=== PATIENT | male | born 1985 | race Hispanic/Latino ===

== ENCOUNTER 2018-06-19 08:25 | Emergency (ER) | payer OTHER ==
[2018-06-19 08:29] VITALS: BMI 25.1
[2018-06-19 08:35] VITALS: TEMP 99
--- NOTE | 2018-06-19 08:56 | C.PDOC ---
History Of Present Illness 32 year old male, with no significant past medical history, presents to ED for evaluation of right knee pain since this morning. Pt states he twisted his right knee while walking down the stairs this morning. Notes he is not able to bear weight. Denies weakness, numbness, or any other associated symptoms. Time Seen by Provider: 06/19/18 08:35 Chief Complaint (Nursing): Lower Extremity Problem/Injury History Per: Patient History/Exam Limitations: no limitations Onset/Duration Of Symptoms: Days Current Symptoms Are (Timing): Still Present Recent travel outside of the [place]: No Additional History Per: Patient - Knee Description Of Injury: Twisted Currently Unable To: Bear Weight Past Medical History Reviewed: Historical Data, Nursing Documentation, Vital Signs Vital Signs: Last Vital Signs Temp 99 F 06/19/18 08:29 Pulse 94 H 06/19/18 08:29 Resp 18 06/19/18 08:29 BP 126/77 06/19/18 08:29 Pulse Ox 96 06/19/18 08:29 Family History: States: Unknown Family Hx - Social History Hx Alcohol Use: Yes Hx Substance Use: No - Immunization History Hx Tetanus Toxoid Vaccination: No Hx Influenza Vaccination: No Hx Pneumococcal Vaccination: No Review Of Systems Except As Marked, All Systems Reviewed And Found Negative. Constitutional: Negative for: Fever, Chills Musculoskeletal: Positive for: Leg Pain (right knee) Skin: Negative for: Bruising Neurological: Negative for: Weakness, Numbness Physical Exam - Physical Exam Appears: Non-toxic, No Acute Distress Skin: Normal Color, Warm, Dry Head: Atraumatic, Normacephalic Extremity: No Normal ROM (decreased ROM of right knee joint, not able to flex or extend), Tenderness (tenderness to medial aspect of right knee), No Pedal Edema, No Calf Tenderness, Capillary Refill (less than 2 seconds), No Deformity, No Swelling Extremity: Bilateral: Normal Color And Temperature, Painful To Bear Weight (right knee) Pulses: Left Dorsalis Pedis: Normal, Right Dorsalis Pedis: Normal Neurological/Psych: Oriented x3, Normal Speech ED Course And Treatment O2 Sat by Pulse Oximetry: 96 (RA) Pulse Ox Interpretation: Normal - Other Rad Right knee Xray X-Ray: Viewed By Me, Read By Radiologist Interpretation: Accession No. : [id number]. Patient Name / ID : BRICE DOZIER / [id number]. Exam Date : 06/19/2018 09:13:21 ( Approved ). Study Comment : Sex / Age : M / 32Y. Creator : Anders Khan MD. Dictator : Anders Khan MD. Unemployment Examiner : Crew Supervisor : Anders Khan MD. Approver2 : Report Date : 06/19/2018 09:47:18. My Comment : . Date of service: 06/19/2018. PROCEDURE: Right Knee Radiographs. HISTORY: right knee pain. COMPARISON: None. FINDINGS: BONES: There is a poorly defined lucent lesion within the lateral aspect right tibial plateau with what appears represent linear nondisplaced fracture lines extending diagonally from this lucency inferiorly and medially into the proximal tibial diametaphyseal. The possibility of an underlying lesion such as a giant cell tumor must be considered.. JOINTS: Normal. No osteoarthritis. JOINT EFFUSION: Moderate-sized suprapatellar joint effusion. OTHER FINDINGS: None. IMPRESSION: There is a poorly defined lucent lesion within the lateral tibial plateau with apparent diagonal nondisplaced fracture extending inferiorly and medially through the tibial diametaphyseal is Medical Decision Making Medical Decision Making: Impression: Right knee sprain vs. fracture Plan: * Right knee Xray * Motrin * Cold pack Spoke with Dr. Kofi Velasco who requests CT of right knee and state pt can be discharged home with knee brace and crutches. Pt was made aware of Xray findings including right tibial plateau fracture and possibility of a tumor. Pt agrees with plan to follow up with Dr. Johns. Pt was given copy of Xray results and was discharged home with instructions to follow up with Dr. Johns. Disposition - Disposition Referrals: Tejal Johns MD [Staff Provider] - Disposition: HOME/ ROUTINE Disposition Time: 11:11 Condition: GOOD Additional Instructions: Please call Dr Johns's office for an appointment as soon as possible and ambulate with crutches, continue to be non weigh bearing and take motrin for pain. Prescriptions: Ibuprofen [Motrin] 600 mg PO Q6 #20 tab Instructions: Tibial Plateau Fracture (DC) Forms: [employer] (Icelandic) - Clinical Impression Clinical Impression: Tibial plateau fracture, Lytic lesion of bone on x-ray - Scribe Statement The provider has reviewed the documentation as recorded by the Scribe KP All medical record entries made by the Scribe were at my direction and personally dictated by me. I have reviewed the chart and agree that the record accurately reflects my personal performance of the history, physical exam, medical decision making, and the department course for this patient. I have also personally directed, reviewed, and agree with the discharge instructions and disposition.
--- NOTE | 2018-06-19 08:59 | C.PDOC ---
Time Seen by Provider: 06/19/18 08:35 Chief Complaint (Nursing): Lower Extremity Problem/Injury Past Medical History Vital Signs: Last Vital Signs Temp 99 F 06/19/18 08:29 Pulse 94 H 06/19/18 08:29 Resp 18 06/19/18 08:29 BP 126/77 06/19/18 08:29 Pulse Ox 96 06/19/18 08:29 - Social History Hx Alcohol Use: Yes Hx Substance Use: No - Immunization History Hx Tetanus Toxoid Vaccination: No Hx Influenza Vaccination: No Hx Pneumococcal Vaccination: No ED Course And Treatment O2 Sat by Pulse Oximetry: 96 Disposition - Disposition Forms: [employer] (Lithuanian)
--- NOTE | 2018-06-19 09:49 | RAD ---
Date of service: 06/19/2018 PROCEDURE: Right Knee Radiographs. HISTORY: right knee pain COMPARISON: None. FINDINGS: BONES: There is a poorly defined lucent lesion within the lateral aspect right tibial plateau with what appears represent linear nondisplaced fracture lines extending diagonally from this lucency inferiorly and medially into the proximal tibial diametaphyseal. The possibility of an underlying lesion such as a giant cell tumor must be considered.. JOINTS: Normal. No osteoarthritis. JOINT EFFUSION: Moderate-sized suprapatellar joint effusion. OTHER FINDINGS: None. IMPRESSION: There is a poorly defined lucent lesion within the lateral tibial plateau with apparent diagonal nondisplaced fracture extending inferiorly and medially through the tibial diametaphyseal is
[2018-06-19 11:12] VITALS: BP 125/77; PULSE 89; RESP 16
--- NOTE | 2018-06-19 13:13 | CT ---
Date of service: 06/19/2018. PROCEDURE: CT of the right knee. HISTORY: Knee fracture, possible lesion. COMPARISON: Correlation made with radiographs of the right knee obtained earlier same day TECHNIQUE: Contiguous helical/transaxial images of the right knee were obtained. Coronal and sagittal reformats were generated. This CT exam was performed using one or more of the following dose reduction techniques: Automated exposure control, adjustment of the m. a and/or kV according to patient size, and/or use of iterative reconstruction technique Radiation dose: Total DLP = 350.85 mGy-cm FINDINGS: BONES: Seen to better advantage is a comminuted impacted fracture of the lateral tibial plateau with inferior displacement of fracture fragments. No discernible underlying lytic lesion however MRI is should be obtained to confirm. Somewhat irregular linear fracture line seen extending inferiorly along the lateral margin of the diametaphysis of the right proximal tibia Hemorrhagic suprapatellar joint effusion exhibiting fluid level consistent with layering dependent hemorrhage and more superiorly nondependent fat. IMPRESSION: There is a comminuted impacted fracture of the lateral tibial lateral tibial plateau with inferior displacement of fracture fragments. Somewhat irregular linear fracture line seen extending inferiorly along the lateral margin of the diametaphysis of the right proximal tibia. No discernible underlying lytic lesion seen however MRI should be performed to confirm. There is a hemorrhagic joint effusion as described.
[2018-06-21 22:16] VITALS: O2SAT 96
== END 2018-06-19 11:11 | disposition home or self-care (01) ==
LOC: C.ER 08:25
DX: S82.144A Nondisplaced bicondylar fracture of right tibia, initial encounter for closed fracture (principal); X50.1XXA Overexertion from prolonged static or awkward postures, initial encounter; Y93.01 Activity, walking, marching and hiking; Y92.9 Unspecified place or not applicable